=== PATIENT | male | born 2000 | race Caucasian/White ===

== ENCOUNTER 2022-09-17 17:17 | Emergency (ER) | payer OTHER, SELFPAY ==
[2022-09-17 17:27] VITALS: BP 138/90; PULSE 89; RESP 16; TEMP 36.8; O2SAT 97; BMI 28.7
--- NOTE | 2022-09-17 17:27 | ED_ITS ---
HPI - Allergic Reaction General Chief complaint: Allergic Reaction <Tanya Chacko CNP - Last Filed: 09/17/22 17:34> Stated complaint: ? allergic reaction,itchy and hives <Tanya Chacko CNP - Last Filed: 09/17/22 17:34> Time Seen by Provider: 09/17/22 17:38 <Tanya Chacko CNP - Last Filed: 09/17/22 17:34> History of Present Illness HPI narrative: Patient accompanied by family member with the complaint of an abrupt onset of hives approximately half an hour to 45 minutes ago, there is no swelling of his throat lips tongue no difficulty breathing or swallowing no shortness of breath no wheezing no vomiting no fainting or feeling faint <KINJAL Montgomery - Last Filed: 09/17/22 18:36> Related Data Home medications: Previous Rx's Medication Instructions Recorded cetirizine 10 mg tablet 10 mg PO DAILY PRN allergy 09/17/22 symptoms #14 tabs famotidine 20 mg tablet (Pepcid) 20 mg PO DAILY #5 tabs 09/17/22 prednisone 20 mg tablet 60 mg PO DAILY 2 days #6 tabs 09/17/22 <Tanya Chacko CNP - Last Filed: 09/17/22 17:34> Allergies/adverse reactions: Allergies Allergy/AdvReac Type Severity Reaction Status Date / Time No Known Allergies Allergy Verified 09/17/22 17:27 <Tanya Chacko CNP - Last Filed: 09/17/22 17:34> FOR[facility]LY [facility] Past Medical History Source: nursing notes reviewed <KINJAL Montgomery - Last Filed: 09/17/22 18:36> Social History Social History: Social History Advance Directives: No Advance Directives Information Provided: No <Tanya Chacko CNP - Last Filed: 09/17/22 17:34> Physical Exam ED Vital Signs: Vital Signs - 24 hr 09/17/22 17:27 09/17/22 18:00 Temperature 98.3 F Pulse Rate 89 89 Respiratory Rate 16 Blood Pressure 138/90 H 138/90 H Pulse Oximetry 97 Oxygen Delivery Method Room Air BMI result Body Mass Index 28.7 <Tanya Chacko CNP - Last Filed: 09/17/22 17:34> Vital Signs - 24 hr 09/17/22 17:27 09/17/22 18:00 Temperature 98.3 F Pulse Rate 89 89 Respiratory Rate 16 Blood Pressure 138/90 H 138/90 H Pulse Oximetry 97 Oxygen Delivery Method Room Air BMI result Body Mass Index 28.7 <KINJAL Montgomery - Last Filed: 09/17/22 18:36> General appearance comfortable no distress speaking full sentences no respiratory distress Eyes no redness or discharge The pharynx is clear without swelling of lips tongue or uvula no redness swelling or exudate, voice is normal, no drooling, no impairment of breathing or swallowing Neck no stridor, supple Chest clear to auscultation with full symmetric equal breath sounds no wheezes no adventitious sounds Heart no murmur Abdomen soft nontender Extremities range of motion x4 Skin there is profuse urticarial rash over the whole body <KINJAL Montgomery - Last Filed: 09/17/22 18:36> Course Course Course Narrative: This is an RME: Additional HPI, ROS, PE not included below will be deferred to primary provider. This could patient is a 21-year-old male presents emergency department for evaluation of hives. He reports no known allergies. Symptom onset 1.5-2 hours ago, reports that her again feeling itchy, diffusely all throughout the body. Denies any new foods oral intake. The only thing he is able to identify is wearing a pair of shoes today that he has not worn in many years, and shopping at a thrift store. Denies and lotions, detergents, environmental exposures. States that he took diphenhydramine 50 mg orally 20 minutes ago. Denies any voice changes, difficulty breathing, throat closing sensation, facial swelling. PE: Pharynx normal. LSCTA. no angioedema. Diffuse urticaria Plan: Pepcid, Solu-Medrol <Tanya Chacko CNP - Last Filed: 09/17/22 17:34> This is an RME: Additional HPI, ROS, PE not included below will be deferred to primary provider. This could patient is a 21-year-old male presents emergency department for evaluation of hives. He reports no known allergies. Symptom onset 1.5-2 hours ago, reports that her again feeling itchy, diffusely all throughout the body. Denies any new foods oral intake. The only thing he is able to identify is wearing a pair of shoes today that he has not worn in many years, and shopping at a thrift store. Denies and lotions, detergents, environmental exposures. States that he took diphenhydramine 50 mg orally 20 minutes ago. Denies any voice changes, difficulty breathing, throat closing sensation, facial swelling. PE: Pharynx normal. LSCTA. no angioedema. Diffuse urticaria Plan: Pepcid, Solu-Medrol Patient is treated with 1 dose of epinephrine 0.3 mg as well as Claritin and prednisone and is observed after 10 minutes with dramatic improvement hives are very improved He was kept another half an hour with continued improvement of symptoms, re- examination the pharynx is clear no swelling of lips tongue or uvula, he does not feel faint or dizzy, he has no chest pain or shortness of breath, and well- appearing patient improved is discharged <KINJAL Montgomery - Last Filed: 09/17/22 18:36> Medications Administered Discontinued Medications Generic Name Dose Route Start Last Admin Trade Name Freq PRN Reason Stop Dose Admin Epinephrine 0.3 mg 09/17/22 17:43 09/17/22 18:00 Epinephrine 1 Mg/Ml Vial IM 09/17/22 17:44 0.3 mg STAT STA Administration Famotidine 20 mg 09/17/22 17:44 09/17/22 17:59 Famotidine 20 Mg Tablet PO 09/17/22 17:45 20 mg ONCE ONE Administration Loratadine 10 mg 09/17/22 17:44 09/17/22 17:59 Loratadine 10 Mg Tablet PO 09/17/22 17:45 10 mg ONCE ONE Administration Prednisone 60 mg 09/17/22 17:44 09/17/22 17:59 Prednisone 20 Mg Tablet PO 09/17/22 17:45 60 mg ONCE ONE Administration <Tanya Chacko CNP - Last Filed: 09/17/22 17:34> Medications Administered Discontinued Medications Generic Name Dose Route Start Last Admin Trade Name Freq PRN Reason Stop Dose Admin Epinephrine 0.3 mg 09/17/22 17:43 09/17/22 18:00 Epinephrine 1 Mg/Ml Vial IM 09/17/22 17:44 0.3 mg STAT STA Administration Famotidine 20 mg 09/17/22 17:44 09/17/22 17:59 Famotidine 20 Mg Tablet PO 09/17/22 17:45 20 mg ONCE ONE Administration Loratadine 10 mg 09/17/22 17:44 09/17/22 17:59 Loratadine 10 Mg Tablet PO 09/17/22 17:45 10 mg ONCE ONE Administration Prednisone 60 mg 09/17/22 17:44 09/17/22 17:59 Prednisone 20 Mg Tablet PO 09/17/22 17:45 60 mg ONCE ONE Administration <KINJAL Montgomery - Last Filed: 09/17/22 18:36> Discharge Plan Discharge Clinical Impression: Urticaria <Tanya Chacko CNP - Last Filed: 09/17/22 17:34> Patient Disposition: Home, Self-Care <Tanya Chakco CNP - Last Filed: 09/17/22 17:34> Additional Instructions: We gave 1 dose of epinephrine in the ER for the abrupt onset hives and it seemed to help quite a bit For the next 5 days take Zyrtec at least once a day, if you do have symptoms of rash or itching it is okay to take a 2nd dose in the evening so it is okay to take Zyrtec twice a day if needed We also wrote for 2 more days of prednisone and Pepcid Return any time for difficulty breathing or swallowing, wheezing, swelling of lips tongue or throat, any worse condition or any concerns <Tanya Chacko CNP - Last Filed: 09/17/22 17:34> Prescriptions: New cetirizine 10 mg tablet 10 mg PO DAILY PRN (Reason: allergy symptoms) Qty: 14 0RF prednisone 20 mg tablet 60 mg PO DAILY 2 Days Qty: 6 0RF famotidine [Pepcid] 20 mg tablet 20 mg PO DAILY Qty: 5 0RF <Tanya Chacko CNP - Last Filed: 09/17/22 17:34>
[2022-09-17] MEDS: Famotidine 20 MG TABLET PO (17:59)
[2022-09-17] MEDS: predniSONE 20 MG TABLET 60 MG PO (17:59)
[2022-09-17] MEDS: Loratadine 10 MG TABLET PO (17:59)
[2022-09-17 18:00] VITALS: BP 138/90; PULSE 89
[2022-09-17] MEDS: EPINEPHrine 1 MG/ML VIAL 0.3 MG IM (18:00)
== END 2022-09-17 18:42 | disposition home or self-care (01) ==
PROVIDERS: Emergency Provider Emergency Medicine
DX: L50.9 Urticaria, unspecified (principal)
CPT/HCPCS: 96372; 99282; 99284; J0171